=== PATIENT | female | born 1980 | race Caucasian/White ===

== ENCOUNTER 2017-08-29 12:18 | Outpatient (CLI) | payer SELFPAY ==
--- NOTE | 2017-08-29 13:39 | Diagnostic Imaging Report ---
MOHSEN DUARTE (TERRAZZO HELPER) [facility] [address] [address] Report Submission Date: Aug 29, 2017 12:52:54 PM CDT Patient Study Name: VINH TORRES Date: Aug 29, 2017 12:31:02 PM CDT Modality Type: CR Gender: F Description: CHEST : 80 Institution: [facility] Physician: MOHSEN DUARTE (TERRAZZO HELPER) Examination: PA and lateral chest. History: Evaluate lung sanford. Findings: PA lateral chest demonstrate a normal cardiac and mediastinal silhouette. No focal infiltrate. No blunting of the costophrenic margins. Left 5th rib fracture. Impression: Left 5th rib fracture. No acute pulmonary process. Electronically signed on Aug 29, 2017 12:52:54 PM CDT by: Miguel KELSEY
--- NOTE | 2017-08-29 13:40 | Diagnostic Imaging Report ---
MOHSEN DUARTE (PASTA PRESS OPERATOR) [facility] [address] [facility] [address] Report Submission Date: Aug 29, 2017 12:54:47 PM CDT Patient Study Name: VINH TORRES Date: Aug 29, 2017 12:33:27 PM CDT Modality Type: CR Gender: F Description: SHOULDER : 80 Institution: [facility] Physician: MOHSEN DUARTE (PASTA PRESS OPERATOR) Examination: Plain film shoulder History: Comparison exams: None provided Findings: 3 views of the shoulder demonstrate normal cortical margins. No evidence for humeral fracture or dislocation. Left 5th rib fracture. No soft tissue abnormality. Impression: No humeral fracture. Left 5th rib fracture. Electronically signed on Aug 29, 2017 12:54:47 PM CDT by: Miguel KELSEY
== END 2017-08-29 12:19 ==
LOC: LAB 12:18 → RAD 12:19
PROVIDERS: ATTEND Nurse Practitioner Family
DX: M25.512 Pain in left shoulder (principal); R07.81 Pleurodynia
CPT/HCPCS: 71020; 73030

== ENCOUNTER 2018-01-24 16:35 | Outpatient (CLI) | payer BC, OTHER ==
--- NOTE | 2018-01-24 18:21 | Diagnostic Imaging Report ---
JUN REVELES [facility] [address] [facility].[address] [address] Report Submission Date: Jan 24, 2018 5:33:36 PM CDT Patient Study Name: VINH TORRES Date: Jan 24, 2018 4:39:55 PM CDT Modality Type: DX Gender: F Description: SPINE : 80 Institution: [facility] Physician: JUN REVELES Lumbar spine, AP, lateral and oblique views. HISTORY Back pain, radiculopathy. FINDINGS There is no fracture, subluxation or abnormal bone production or destruction. The vertebral bodies and intervertebral disk spaces are of normal height. Facet joints are normal. IMPRESSION Normal. Electronically signed on Jan 24, 2018 5:33:36 PM CDT by: Evaristo KELSEY
== END 2018-01-24 16:45 ==
LOC: RAD 16:35
PROVIDERS: ATTEND Family Medicine
DX: M54.16 Radiculopathy, lumbar region (principal)
CPT/HCPCS: 72110

== ENCOUNTER 2018-10-09 06:41 | Emergency (ER) | payer OTHER ==
[2018-10-09] MEDS ORDERED: LORATADINE 10 MG TABLET PO ONE (06:44)
[2018-10-09] MEDS ORDERED: diphenhydrAMINE HCL 50 MG/ML VIAL IVP ONE (06:44)
[2018-10-09] MEDS ORDERED: methylPREDNISolone SOD SUCC 125 MG/2 ML VIAL IVP ONE (06:44)
[2018-10-09] MEDS ORDERED: FAMOTIDINE/PF 20 MG/2 ML VIAL IVP ONE (06:44)
--- NOTE | 2018-10-09 07:44 | ED Physician Documentation ---
General Adult - HISTORIAN Historian: patient - HPI Stated Complaint: Rash Chief Complaint: General Adult Further Comments: yes (38 year old female patient presents with hives over entire body. Denies new food, lotion, soaps, shampoos or chemical exposure. Patient states she ate crab meat last night at [employer]. State she has eaten crab and shell fish her whole life with no allergic reaction. States symptoms started yesterday; has been using benadryl at home. Last dose 4-5 hours ago. Denies SOB; c/o tongue feeling numb.) - ROS CONST: no problems EYES/ENT: none CVS/RESP: none GI/: none MS/SKIN/LYMPH: rash NEURO/PSYCH: denies: headache - PAST HX Past History: other (depression) Allergies/Adverse Reactions: Allergies Allergy/AdvReac Type Severity Reaction Status Date / Time anise oil Allergy Verified 10/09/18 11:39 benzonatate Allergy Verified 10/09/18 07:13 [From Nayana Tang] Home Medications: Ambulatory Orders Medication Instructions Recorded Levothyroxine Sodium 88 mcg PO DAILY u2 08/23/17 Venlafaxine HCl [Effexor Xr] 150 mg PO DAILY av 08/23/17 Ondansetron [Zofran Odt] 4 mg PO TID PRN #30 tab.rapdis 10/09/18 Epinephrine [Epipen] 0.3 mg IJ DIRECTED PRN #1 10/10/18 auto.injct Hydroxyzine HCl [Atarax] 25 mg PO BID PRN #60 tablet 10/10/18 predniSONE [Deltasone] 20 mg PO DAILY #6 tablet 10/10/18 - SOCIAL HX Smoking History: cigarettes - FAMILY HX Family History: No - VITAL SIGNS Vital Signs: Vital Signs Temp Pulse Resp BP Pulse Ox 98.6 F 106 H 20 124/83 98 10/09/18 06:45 10/09/18 06:45 10/09/18 06:45 10/09/18 06:45 10/09/18 06:45 - REVIEWED ASSESSMENTS Nursing Assessment Reviewed: Yes Vitals Reviewed: Yes Progress - Progress Progress: Medicated in ER with solumedrol, benadryl, Pepcid and loratadine. 0700 - Reviewed discharge instructions with patient; verbalized understanding. Rx for prednisone taper. Report off to Vince Hurtado. Patient improving. Vince Hurtado to watch in Er and discharge home if patient is stable. ED Results Lab/Radiology - Orders Orders: ED Orders Category Date Time Status Place IV Lock 1T Care 10/09/18 06:44 Active Famotidine/Pf [Pepcid] Med 10/09/18 06:44 Discontinued 20 mg IVP NOW ONE Loratadine [Claritin] Med 10/09/18 06:44 Discontinued 10 mg PO NOW ONE diphenhydrAMINE HCL [Benadryl] Med 10/09/18 06:44 Discontinued 50 mg IVP NOW ONE methylPREDNISolone SOD SUCC [Solu-MEDROL] Med 10/09/18 06:44 Discontinued 125 mg IVP NOW ONE General Adult Physical Exam - PHYSICAL EXAM GENERAL APPEARANCE: moderate distress EENT: eye inspection normal, ENT inspection normal, pharynx normal, no signs of dehydration, [place], no nystagmus, TM's nml, other (no stridor) RESPIRATORY: no resp distress, chest non-tender, breath sounds normal, other (no wheezing) CVS: reg rate & rhythm, heart sounds normal, equal pulses, no murmur, no gallop, PMI nml, no JVD, no friction rub, 24 ABDOMEN: soft, no organomegaly, normal bowel sounds, no abdominal bruit, no distension BACK: normal inspection, no CVA tenderness SKIN: warm/dry, normal color, other (urticarial rash on trunk including back and abdomen; extremities; cheeks and face with erythema - itching rash) EXTREMITIES: non-tender, normal range of motion, no evidence of injury, no edema, J, FIRST CRUSHER NEURO: oriented X3, CN's nml as tested, motor nml, sensation nml, mood/affect nml Discharge Clincal Impression: Hives, Allergic reaction, urticaria Prescriptions: Ondansetron [Zofran Odt] 4 mg PO TID PRN #30 tab.rapdis PRN Reason: Nausea / Vomiting Referrals: Guevara Pedro [Primary Care Provider] - 2 Days Additional Instructions: Continue Benadryl 25-50mg by mouth every 6 hours until symptoms resolve Take Zantac 150mg po twice a day Take either Claritan, Allergra, or Zyrtec daily until symptoms resolve. Fill your prednisone and start it in the morning. Continue the claritan and zantac for at least 3 days after hives resolve. Condition: Stable Disposition: 01 HOME, SELF-CARE Decision to Admit: NO Decision Time: 07:44
[2018-10-09 08:26] VITALS: BP 129/82
== END 2018-10-09 08:25 | disposition home or self-care (01) ==
LOC: ED 06:41
DX: L50.0 Allergic urticaria (principal)
CPT/HCPCS: 96374; 96375; 99283; 99284; J1200; J2930; S0028; S1016

== ENCOUNTER 2018-10-09 10:41 | Observation (INO) | payer OTHER ==
[2018-10-09] MEDS ORDERED: diphenhydrAMINE HCL 50 MG/ML VIAL IVP ONE (10:48)
[2018-10-09] MEDS ORDERED: HYDROCORTISONE SODIUM SUCC IVP ONE (10:48)
[2018-10-09] MEDS ORDERED: FAMOTIDINE/PF 20 MG/2 ML VIAL IVP ONE (10:48)
[2018-10-09] MEDS ORDERED: 0.9 % SODIUM CHLORIDE 1,000 ML IV ONE (10:51)
--- NOTE | 2018-10-09 10:55 | ED Physician Documentation ---
General Adult - HISTORIAN Historian: patient - HPI Stated Complaint: allergic reaction Chief Complaint: General Adult Additional Information: Patient re-presents to ED with hives, facial swelling, tougue/throat/lip burning. Patient was seen early this morning for similar symptoms, given solumedrol, pepcid, benedryl and claritin. She started having symptoms yesterday evening after eating crab from a [place]. Her symptoms improved after treatment in the ED and she was discharged. Four hours later her symptoms have returned. She denies wheezing, shortness of breath or chest pain. Onset: hours (12) Timing: still present, worse Severity: moderate - ROS CONST: no problems EYES/ENT: none CVS/RESP: none GI/: none MS/SKIN/LYMPH: none - PAST HX Past History: none Other History: none Surgeries/Procedures: none Allergies/Adverse Reactions: Allergies Allergy/AdvReac Type Severity Reaction Status Date / Time anise oil Allergy Verified 10/09/18 11:39 benzonatate Allergy Verified 10/09/18 07:13 [From Nayana Tang] Home Medications: Ambulatory Orders Medication Instructions Recorded Levothyroxine Sodium 88 mcg PO DAILY u2 08/23/17 Venlafaxine HCl [Effexor Xr] 150 mg PO DAILY av 08/23/17 Ondansetron [Zofran Odt] 4 mg PO TID PRN #30 tab.rapdis 10/09/18 - SOCIAL HX Smoking History: cigarettes Alcohol Use: none Drug Use: none - FAMILY HX Family History: No - VITAL SIGNS Vital Signs: Vital Signs Temp Pulse Resp BP Pulse Ox 129/82 10/09/18 08:20 - REVIEWED ASSESSMENTS Nursing Assessment Reviewed: Yes Vitals Reviewed: Yes Progress - Progress Progress: 1106 Patient feeling better after IV Benedryl. Will admit for observation. ED Results Lab/Radiology - Orders Orders: ED Orders Category Date Time Status Place IV Lock 1T Care 10/09/18 10:47 Ordered CBC/PLATELET/DIFF Routine Lab 10/09/18 Ordered CMP [CMP] Routine Lab 10/09/18 Ordered Famotidine/Pf [Pepcid] Med 10/09/18 10:48 Once 40 mg IVP NOW ONE Hydrocortisone Sodium Succ/Pf [Solu-CORTEF] Med 10/09/18 10:48 Once 100 mg IVP NOW ONE NORMAL SALINE @ 1000 MLS/HR ( 1000ml BOLUS) Med 10/09/18 10:51 Ordered 0.9 % Sodium Chloride [Normal Saline] 1,000 ml IV Q1H diphenhydrAMINE HCL [Benadryl] Med 10/09/18 10:48 Once 50 mg IVP NOW ONE General Adult Physical Exam - PHYSICAL EXAM GENERAL APPEARANCE: mild distress EENT: pharynx normal RESPIRATORY: no resp distress, breath sounds normal. No: wheezes CVS: reg rate & rhythm, heart sounds normal ABDOMEN: soft, normal bowel sounds, non-tender BACK: no CVA tenderness SKIN: warm/dry, cyanosis (both hands), other (hives to face, arms, trunk and legs ) EXTREMITIES: non-tender, no edema NEURO: oriented X3, motor nml Discharge Clincal Impression: Hives Allergic reaction Qualifiers: Encounter type: subsequent encounter Qualified Code(s): T78.40XD - Allergy, unspecified, subsequent encounter Condition: Stable Disposition: ADMITTED INPATIENT Decision to Admit: [id number] Date of Decison to Admit: 10/09/18 Decision Time: 11:08
[2018-10-09] MEDS ORDERED: ONDANSETRON HCL/PF 4 MG/ 2ML VIAL ONE (10:57)
[2018-10-09] MEDS ORDERED: methylPREDNISolone SOD SUCC 125 MG/2 ML VIAL IVP ONE (10:58)
[2018-10-09] MEDS ORDERED: ONDANSETRON HCL/PF 4 MG/ 2ML VIAL IVP ONE (10:58)
[2018-10-09 11:02] LABS: BASOPHILS % 1.1 (0.0-1.5); EOSINOPHILS % 1.1 % (0.0-6.8); MEAN CORPUSCULAR HEMOGLOBIN 34.1 pg (28.0-34.0); MONOCYTES % 2.2 % (0.0-11.0); NEUTROPHILS # 9.5 # k/uL (1.4-7.7)
[2018-10-09 11:33] LABS: eGFR (Non-African) > 60
[2018-10-09] MEDS ORDERED: ONDANSETRON HCL/PF 4 MG/ 2ML VIAL IVP PRN (11:53)
[2018-10-09] MEDS ORDERED: PROMETHAZINE HCL 25 MG TABLET PO PRN (11:53)
[2018-10-09 12:16] VITALS: BMI 27.2
[2018-10-09] MEDS: 0.9 % SODIUM CHLORIDE 1,000 ML IV SCH ×2 (12:22→14:07)
[2018-10-09] MEDS: methylPREDNISolone SOD SUCC 40 MG/ML VIAL IVP SCH ×2 (12:26→17:18)
[2018-10-09] MEDS: diphenhydrAMINE HCL 50 MG/ML VIAL IVP SCH ×4 (12:28→21:50)
[2018-10-09] MEDS ORDERED: FAMOTIDINE/PF 20 MG/2 ML VIAL IVP SCH (21:00)
[2018-10-09] MEDS ORDERED: ALPRAZOLAM 0.5 MG TABLET PO PRN (21:38)
[2018-10-09] MEDS: SULFAMETHOXAZOLE/TRIMETHOPRIM 1 EACH TABLET PO SCH (21:51)
[2018-10-10] MEDS: methylPREDNISolone SOD SUCC 40 MG/ML VIAL IVP SCH ×2 (00:10→06:25)
[2018-10-10] MEDS: HYDROXYZINE HCL 25 MG TABLET PO PRN ×2 (00:13→06:25)
[2018-10-10] MEDS: 0.9 % SODIUM CHLORIDE 1,000 ML IV SCH (00:20)
--- NOTE | 2018-10-10 07:02 | Discharge Summary ---
Discharge Summary - Discharge Sumary History of Present Illness: Patient presented to ED with hives after eating persian food containing crab. She was initially treated in the ED with solumedrol, pepcid, and benedryl and discharged. She returned 4 hours later with worsening symptoms. Patient was admitted for observation. Solumedrol, benedryl and pepcid were continued. Atarax, Xanax and Xyxal was finally used with great success. Patient was discharged in good condition with Prednisone taper, EpiPen and Atarax. Condition at Discharge: Stable Home Medications: Ambulatory Orders Medication Instructions Recorded Levothyroxine Sodium 88 mcg PO DAILY u2 08/23/17 Venlafaxine HCl [Effexor Xr] 150 mg PO DAILY av 08/23/17 Ondansetron [Zofran Odt] 4 mg PO TID PRN #30 tab.rapdis 10/09/18 Epinephrine [Epipen] 0.3 mg IJ DIRECTED PRN #1 10/10/18 auto.injct Hydroxyzine HCl [Atarax] 25 mg PO BID PRN #60 tablet 10/10/18 predniSONE [Deltasone] 20 mg PO DAILY #6 tablet 10/10/18 Consultations this Visit: None Procedures this Visit: None Allergies/Adverse Reactions: Allergies Allergy/AdvReac Type Severity Reaction Status Date / Time anise oil Allergy Verified 10/09/18 11:39 benzonatate Allergy Verified 10/09/18 07:13 [From Nayana Tang] Patient Problems: Current Active Problems Problem Status Onset Allergic reaction Acute Hives Acute Discharge Summary: Patient presented to ED with hives after eating persian food containing crab. She was initially treated in the ED with solumedrol, pepcid, and benedryl and discharged. She returned 4 hours later with worsening symptoms. Patient was admitted for observation. Solumedrol, benedryl and pepcid were continued. At arax, Xanax and Xyxal was finally used with great success. Patient was discharged in good condition with Prednisone taper, EpiPen and Atarax.
[2018-10-10] MEDS: SULFAMETHOXAZOLE/TRIMETHOPRIM 1 EACH TABLET PO SCH (08:18)
[2018-10-10 09:30] VITALS: BP 111/63
[2018-10-10] MEDS ORDERED: NICOTINE 21mg 1 EACH PATCH.TD24 TD SCH (21:41)
== END 2018-10-10 08:45 | disposition home or self-care (01) ==
LOC: ED 10:41 → SOUTH 11:22
PROVIDERS: ADMIT Physician Assistant Medical; ATTEND Physician Assistant Medical
DX: L50.8 Other urticaria (principal); T78.49XA Other allergy, initial encounter; X58.XXXA Exposure to other specified factors, initial encounter
CPT/HCPCS: 80053; 85025; A9270; G0378; J1200; J2405; J2920; J2930; J7030; 96365; 96375; 99284; S0028; J1030; S1016

== ENCOUNTER 2019-01-21 05:13 | Emergency (ER) | payer OTHER ==
--- NOTE | 2019-01-21 05:19 | ED Physician Documentation ---
General Adult - HISTORIAN Historian: patient - HPI Stated Complaint: overdose on meds venalfaxine and thyroid med Chief Complaint: Overdose Onset: hours (2) Timing: still present Severity: mild Further Comments: yes (She reports she "just wanted to not be at home" she states her child and her have had issues for several months and she wanted to be away from him. She reports she had 6 beers and took "a handful of those two bottles of pills" States she was not trying to kill herself she just wanted to sleep good. She denies any current complaints. Her boyfriend mom and son are in waiting room and state the entire day was full of emotional outburts and she was drinnking for the entire day as well as taking ativain she has at home. She was texting the boyfriend that when she was done with the day he would have to call the instrument and control technician not the ambulance. She denies any other drug use.) Last known Well Code/Unknown Code: Unknown - ROS CONST: no problems CVS/RESP: none GI/: none MS/SKIN/LYMPH: none NEURO/PSYCH: denies: headache - PAST HX Past History: asthma Other History: none Surgeries/Procedures: , hysterectomy Immunizations: UTD Allergies/Adverse Reactions: Allergies Allergy/AdvReac Type Severity Reaction Status Date / Time anise oil Allergy Mild Verified 01/21/19 05:30 benzonatate Allergy Verified 01/21/19 05:30 [From Nayana Tang] Home Medications: Ambulatory Orders Medication Instructions Recorded Levothyroxine Sodium 88 mcg PO DAILY u2 08/23/17 Venlafaxine HCl [Effexor Xr] 225 mg PO DAILY av 08/23/17 LORazepam [Ativan] 0.5 mg PO TID 01/21/19 - SOCIAL HX Smoking History: cigarettes Alcohol Use: occasionally Drug Use: none - FAMILY HX Family History: No - VITAL SIGNS Vital Signs: Vital Signs Temp Pulse Resp BP Pulse Ox 111/63 10/10/18 09:29 - REVIEWED ASSESSMENTS Nursing Assessment Reviewed: Yes Vitals Reviewed: Yes Progress - Progress Progress: 0535: discussed case with poison control. Orders noted. Pt is refusing EKG. Discussed care she is stating she just wants to go home. DG 0618: pt states she wants to leave AMA. Discussed the fact she has taken meds that need to be monitored and she did tell the boyfriend he would need to call the instrument and control technician not the ambulance. She states this is a lie and they are just trying to get her in trouble. Discussed reality of the need to be monitored with the meds she took - she asks for a drink and cigarettes. DG 0630: pt is refusing. threat monitoring analyst. [facility] called about possible transfer for medical clearance Vicki discussed case she will return call DG [id number]: Dr Cruz [facility] accepting through ER DG General Adult Physical Exam - PHYSICAL EXAM GENERAL APPEARANCE: mild distress (tearful) EENT: eye inspection normal, no signs of dehydration NECK: normal inspection RESPIRATORY: no resp distress, chest non-tender, breath sounds normal CVS: reg rate & rhythm, heart sounds normal ABDOMEN: soft, normal bowel sounds, no distension SKIN: warm/dry, normal color EXTREMITIES: non-tender, normal range of motion NEURO: oriented X3 Discharge Clincal Impression: Overdose Qualifiers: Encounter type: initial encounter Injury intent: undetermined intent Qualified Code(s): T50.904A - Poisoning by unspecified drugs, medicaments and biological substances, undetermined, initial encounter Referrals: Guevara Pedro [Primary Care Provider] - 2 Days Comments: Dr Cruz accepting [facility] DG Condition: Fair Disposition: 02 XFER SHT-TRM HOSP Decision to Admit: [id number] Date of Decison to Admit: 01/21/19 Decision Time: 06:45
[2019-01-21 05:47] LABS: BASOPHILS % 2.8 (0.0-1.5); EOSINOPHILS % 1.9 % (0.0-6.8); MEAN CORPUSCULAR HEMOGLOBIN 34.4 pg (28.0-34.0); MONOCYTES % 3.8 % (0.0-11.0)
[2019-01-21 05:48] LABS: NEUTROPHILS # 7.4 # k/uL (1.4-7.7)
[2019-01-21] MEDS: THIAMINE HCL 200 MG/2 ML VIAL ONE (06:03)
[2019-01-21] MEDS: THIAMINE HCL 100 MG, MULTIVIT INFUSN,ADULT 1,VIT K 10 ML, FOLIC ACID 5 MG in 0.9 % SODI... IV ONE (06:03)
[2019-01-21] MEDS: FOLIC ACID 5 MG/1 ML ONE (06:04)
[2019-01-21] MEDS: 0.9 % SODIUM CHLORIDE 1,000 ML IV ONE (06:04)
[2019-01-21] MEDS: MULTIVIT INFUSN,ADULT 1,VIT K 10 ML VIAL IV ONE (06:04)
[2019-01-21 06:13] LABS: eGFR (Non-African) > 60
[2019-01-21 07:17] VITALS: BP 110/95
== END 2019-01-21 07:15 | disposition short-term general hospital (02) ==
LOC: ED 05:13
DX: T43.214A Poisoning by selective serotonin and norepinephrine reuptake inhibitors, undetermined, initial encounter (principal); T38.1X4A Poisoning by thyroid hormones and substitutes, undetermined, initial encounter; Y92.009 Unspecified place in unspecified non-institutional (private) residence as the place of occurrence of the external cause; Z79.899 Other long term (current) drug therapy
CPT/HCPCS: 36415; 80053; 80320; 82550; 84439; 84443; 84481; 84484; 85025; 93005; 96374; 99285; J3411; J3490; J7030; 80377; G0480; G0481; S1016

== ENCOUNTER 2019-08-20 13:45 | Outpatient (CLI) | payer OTHER | END 2019-08-20 13:55 | LOC: LAB 13:45 | PROVIDERS: ATTEND Internal Medicine Rheumatology | DX: C76.8 Malignant neoplasm of other specified ill-defined sites (principal); C21.0 Malignant neoplasm of anus, unspecified; L50.0 Allergic urticaria | CPT/HCPCS: 36415; 82785; 83516; 86160; 86162 ==